=== PATIENT | female | born 1995 | race Caucasian/White ===

== ENCOUNTER → 2017-03-11 15:23 | Observation (INO) ==
--- NOTE | 2017-03-11 14:47 | OB/GYN History & Physical ---
Addendum entered and electronically signed by Nicolasa Young DO 15:12: Urine returned and WNL. Follow up with OBGYN in next 2-5 days. Original Note: Date of Encounter: 03/11/17 Time of Encounter: 14:45 Assessment and Plan (1) 22 weeks gestation of Current visit: Yes Status: Acute Bedside Doppler showed heart tones 160 bpm. Bedside ultrasound completed and showed good movement and good heart tones. We will perform a urine analysis to determine if there is a urinary tract infection. Disposition pending these results. This likely will be discharged with close follow-up with her [employer]. (2) with suprapubic cramping, antepartum Current visit: Yes Status: Acute Patient with suprapubic cramping starting this morning and afternoon. Patient denies any vaginal bleeding or fluid. We will perform a UA. Disposition pending results. History of Present Illness HPI: Ms. Reaves is a 21 year old female presenting to labor and delivery with chief complaint of suprapubic cramping and concern for not feeling baby move. Patient states she has been feeling the baby move since 15 weeks. Patient also with outside [employer] therefore we do not have any previous lab work. Patient states she is 22 weeks and 5 days. At last ultrasound were unable to visualize 2 chambers of the baby's heart that patient has had no other complications with this . She denies any vaginal bleeding or fluid leak. She denies any urinary symptoms. Patient takes vitamins daily. She states when she woke up this afternoon to get ready for work she did not feel baby moving. She also had suprapubic cramping. She was concerned because this is the cramping similar to when she would get her period. Patient has had a UTI in this . Past Med Surg Social Fam HX - Past Medical History Medical history: no medical history Psychiatric history: no psych history - Past Surgical History Surgical History: no surgical history - Social History Smoking Status: Never smoker Smokeless Tobacco Status: No Alcohol use: none Drug use: none - Family History Father Hx Family Medical Disorders: Yes (DVT) Obstetrical History - Pregnancies : 1 Para: 0 Term: 0 : 0 Ab's: 0 Livin Medications and Allergies Tablet 1 tab PO DAILY 03/11/17 [History] 3 Allergy/AdvReac Type Severity Reaction Status Date / Time Nickel Allergy Rash Verified 09/22/16 18:17 Review of System OB All systems PM: reviewed and no additional remarkable complaints except as stated Exam - Constitutional Constitutional: well developed, well nourished, no acute distress, average body habitus - HEENT HEENT: Normocephaly, Mucus Membranes Moist - Neck Neck exam: normal inspection - Lungs Respiratory exam: CTAB - Cardiovascular Cardiovascular exam: RRR - Abdomen Abdomen: Present: bowel sounds normal, gravid (Uterus 1 fingerbreath below the umbilicus), non tender - Extremities Extremities exam: normal inspection - Comments Comments: Bedside Doppler showed heart tones at 160 bpm. Bedside ultrasound completed showed good movement and good heart tones as well. Results All other labs normal. - VTE Reasons for not Prescribing Prophylaxis: Treatment not Indicated - Low risk for VTE - Attending Attestation I examined this patient and my medical decision-making was reviewed with the Resident Physician. I agree with the documented findings, disposition and treatment plan as described. Adam Parsons CNM
[2017-03-11 14:56] LABS: Bilirubin,Urine Negative (Negative); Blood,Urine Negative (Negative); Clarity,Urine Cloudy (Clear); Color,Urine Yellow (Yellow); Glucose,Urine (UA) Normal (Normal); Ketones,Urine Negative (Negative); Leukocyte Esterase,Urine Negative (Negative); Nitrite,Urine Negative (Negative); Protein,Urine Negative (Neg-Trace); Specific Gravity,Urine 1.016 (1.010-1.025); Urobilinogen,Urine Normal (Normal)
[2017-03-11 14:57] LABS: Bacteria,Urine Many per hpf (None-Few); Hyaline Casts,Urine None Seen per lpf (None-Few); RBC,Urine 0-3 per hpf (0-3); Squamous Epithelial Cell,Urine Many per lpf (None-Few)
[2017-03-11 15:01] LABS: Amphetamine Screen,Urine Negative ng/mL (Cutoff=1000); Barbiturate Screen,Urine Negative ng/mL (Cutoff=200); Benzodiazepines Screen,Urine Negative ng/mL (Cutoff=200); Cannabinoid Screen,Urine Negative ng/mL (Cutoff = 50); Cocaine Screen,Urine Negative ng/mL (Cutoff= 300); Opiate Screen,Urine Negative ng/mL (Cutoff=300); Phencyclidine Screen,Urine Negative ng/mL (Cutoff=25)
== END | disposition home or self-care (01) ==
LOC: 1NENULAB
PROVIDERS: ADMIT Obstetrics & Gynecology; ATTEND Obstetrics & Gynecology

== ENCOUNTER → 2017-05-14 17:43 | Observation (INO) ==
[2017-05-14 16:46] LABS: Basophils % 0.1 %; Eosinophils % 0.1 %; Hematocrit 34.8 % (35.3-44.9); Hemoglobin 11.6 g/dL (11.5-15.4); Lymphocytes # 1.1 K/mcL (0.6-4.6); Lymphocytes % 7.7 %; Mean Corpuscular HGB Conc 33.3 g/dL (31.6-35.5); Mean Corpuscular Volume 89.9 fL (83.0-100.0); Mean Platelet Volume 11.5 fL (9.4-12.4); Monocytes # 1.1 K/mcL (0.0-1.3); Monocytes % 7.4 %; Neutrophils # 11.9 K/mcL (1.6-8.9); Platelet Count 175 K/mcL (140-400); Red Blood Count 3.87 M/mcL (3.82-4.97); Segmented Neutrophils % 83.7 %
[2017-05-14 16:48] LABS: Bilirubin,Urine Negative (Negative); Blood,Urine Negative (Negative); Clarity,Urine Cloudy (Clear); Color,Urine Yellow (Yellow); Glucose,Urine (UA) Normal (Normal); Ketones,Urine Negative (Negative); Leukocyte Esterase,Urine Moderate (Negative); Nitrite,Urine Positive (Negative); Protein,Urine Trace mg/dL (Neg-Trace); Specific Gravity,Urine 1.015 (1.010-1.025); Urobilinogen,Urine Normal (Normal)
[2017-05-14 16:50] LABS: Bacteria,Urine Many per hpf (None-Few); Hyaline Casts,Urine None Seen per lpf (None-Few); Squamous Epithelial Cell,Urine Many per lpf (None-Few); WBC,Urine TNTC per hpf (0-3)
[2017-05-14 17:07] LABS: Amphetamine Screen,Urine Negative ng/mL (Cutoff=1000); Barbiturate Screen,Urine Negative ng/mL (Cutoff=200); Benzodiazepines Screen,Urine Negative ng/mL (Cutoff=200); Cannabinoid Screen,Urine Negative ng/mL (Cutoff = 50); Cocaine Screen,Urine Negative ng/mL (Cutoff= 300); Opiate Screen,Urine Negative ng/mL (Cutoff=300); Phencyclidine Screen,Urine Negative ng/mL (Cutoff=25)
--- NOTE | 2017-05-14 17:13 | OB/GYN Progress Note ---
Date of Encounter: 05/14/17 Time of Encounter: 17:11 - Assessment and Plan (1) UTI (urinary tract infection) during Current Visit: Yes Status: Acute Pt has UTI. Slightly elevated WBC with mild CVA tenderness. Will treat outpt with PO macrobid BID x7 days Advised to treat pain with tylenol Advised of concerning sx: vaginal bleeding, fuid leaking, poor movement Has f/u with OB Dr. Pereira next week. Qualifiers: Trimester: third trimester Qualified Code(s): O23.43 - Unspecified infection of urinary tract in , third trimester Subjective - Subjective Principal diagnosis: back pain Interval history: 21 y/o F at 33 6/7 weeks gestation (Dr. Pereira pt) presents complaining of low back pain for over a week. She denies dysuria or burning with urination, she has has minimal hematuria. She has not had fevers, chills. She denies LOF, vaginal bleeding and decreased movement. She reports she came in to be checked because the pain was getting worse. Antepartum ROS: movement normal, no loss of fluid, no vaginal bleeding, no contractions Objective - Vital Signs Vital Signs: Intake and Output 05/14/17 05/14/17 05/14/17 07:59 15:59 23:59 Other: Weight 88.8 kg Patient Weight 05/14/17 23:59 Weight 88.8 kg - Exam FHR: auscultation normal, category 1 FHR comments: baseline 155 Auscultation: bilateral: normal Abdomen: Present: normal appearance, soft, gravid. Absent: tenderness Uterus: Present: normal, firm, other (right CVA tenderness) - Labs Labs: Abnormal lab results WBC 14.2 K/mcL (4.3-11.1) H 05/14/17 16:20 Hct 34.8 % (35.3-44.9) L 05/14/17 16:20 Neutrophils # 11.9 K/mcL (1.6-8.9) H 05/14/17 16:20 Urine Clarity Cloudy (Clear) A 05/14/17 16:20 Urine Nitrite Positive (Negative) A 05/14/17 16:20 Ur Leukocyte Esterase Moderate (Negative) H 05/14/17 16:20 Urine Microscopic RBC 5-15 per hpf (0-3) H 05/14/17 16:20 Urine Microscopic WBC TNTC per hpf (0-3) H 05/14/17 16:20 Ur Squamous Epith Cells Many per lpf (None-Few) H 05/14/17 16:20 Urine Bacteria Many per hpf (None-Few) H 05/14/17 16:20
[~2017-05-14 17:43] MED LIST: Ringers Solution, Lactated 1,000 ML IVC ONE; Ringers Solution, Lactated 1,000 ML ONE
== END | disposition home or self-care (01) ==
LOC: 1NENULAB
PROVIDERS: ADMIT Family Medicine; ATTEND Student in an Organized Health Care Education/Training Program

== ENCOUNTER 2018-11-04 03:57 | Inpatient (IN) ==
[2018-11-04] MEDS ORDERED: Naloxone 0.4 MG/ML INJ IVP PRN (03:59)
[2018-11-04] MEDS ORDERED: *HR* Nalbuphine 10 MG/ML AMPUL IVP PRN (03:59)
[2018-11-04] MEDS ORDERED: Metoclopramide 10 MG/2 ML VIAL IVP PRN (03:59)
[2018-11-04] MEDS ORDERED: Lidocaine 1% 20 ML MDV INFILT PRN (03:59)
[2018-11-04] MEDS ORDERED: Ondansetron 4 MG/2 ML VIAL IVP PRN (03:59)
[2018-11-04] MEDS ORDERED: Famotidine 20 MG/2 ML VIAL IVP PRN (03:59)
[2018-11-04 04:43] LABS: Amphetamine Screen,Urine Negative ng/mL (Cutoff=1000); Barbiturate Screen,Urine Negative ng/mL (Cutoff=200); Benzodiazepines Screen,Urine Negative ng/mL (Cutoff=200); Cannabinoid Screen,Urine Negative ng/mL (Cutoff = 50); Cocaine Screen,Urine Negative ng/mL (Cutoff= 300); Opiate Screen,Urine Negative ng/mL (Cutoff=300); Phencyclidine Screen,Urine Negative ng/mL (Cutoff=25)
[2018-11-04 04:51] LABS: Basophils % 0.3 %; Eosinophils # 0.1 K/mcL (0.0-0.6); Eosinophils % 0.6 %; Hematocrit 33.8 % (35.3-44.9); Hemoglobin 10.3 g/dL (11.5-15.4); Immature Granulocytes % 0.9 % (0-4); Lymphocytes % 21.6 %; Mean Corpuscular HGB Conc 30.5 g/dL (31.6-35.5); Mean Corpuscular Hemoglobin 25.6 pg (28.0-33.3); Mean Corpuscular Volume 83.9 fL (83.0-100.0); Mean Platelet Volume 12.1 fL (9.4-12.4); Monocytes % 7.4 %; Neutrophils # 9.7 K/mcL (1.6-8.9); Platelet Count 293 K/mcL (140-400); Red Blood Count 4.03 M/mcL (3.82-4.97); Red Cell Distribution Width 13.8 % (11.5-14.5); Segmented Neutrophils % 69.2 %
[2018-11-04] MEDS ORDERED: Bupivacaine-MPF 0.25% 10 ML VIAL EP ONE (05:04)
[2018-11-04] MEDS ORDERED: *HR* FentaNYL (PF) 100 MCG/2 ML VIAL EP ONE (05:04)
[2018-11-04] MEDS ORDERED: EPHEDrine 50 MG/ML VIAL IVP PRN (05:04)
--- NOTE | 2018-11-04 05:04 | Anesthesia Evaluation PreOp ---
Date of Encounter: 11/04/18 Time of Encounter: 05:02 - Past History Planned Operation: YOKO Cardiac History: Denies any Significant Hx Pulmonary History: Denies Any Significant HX [employer] ASSOCIATE History: Denies Any Significant HX Other Medical History: Denies Any Significant HX Anesthesia History: No Prior Anesthetic Complications (YOKO x 1--inadequate labor analgesia; denies personal and family h/o GA complications) : Yes Alcohol Use: none Drug use: none Medications and Allergies Tablet 1 tab PO DAILY 03/11/17 [History] Famotidine [Acid Controller] 20 mg PO BID #60 tablet 09/29/17 [Rx] Allergy/AdvReac Type Severity Reaction Status Date / Time Nickel Allergy Rash Verified 07/29/18 21:39 - Meds/Allergy Pre-op Review Medications Reviewed: Yes Allergies Reviewed: Yes Beta Blockers on Current Med List: No Anesthesia Results - Labs 11/04/18 04:00 Anesthesia Exam 136/86, HR 107 O2 Sat Height 1.73 m Weight 106.141 kg NPO (# of Hours): solids > 8hrs Pain Scale: 0 Pain Scale Used: Numeric (1 - 10) - HEENT Pupil (Motor): Pupils equal Mallampati: I Teeth: Normal Oral Opening: Greater than 3 - [employer] ASSOCIATE LOC: Oriented [employer]ATE Motor: Normal RUE, Normal LUE, Normal RLE, Normal LLE, Normal Face [employer]ATE Sensory: Normal: RUE, LUE, RLE, LLE, Face - Cardiac Rhythm: Regular Murmur: None - Pulmonary Breath Sounds: bilateral Clear Respiratory Effort: Symmetrical Anesthesia Assess/Plan ASA Score: 2 Level of consciousness: Cooperative, Oriented, Tranquil Anesthetic Plan: Epidural Autologous Blood: No Monitoring Plan: Standard Monitors Recovery Plan: Other
--- NOTE | 2018-11-04 06:20 | Event Note ---
Date of Encounter: 11/04/18 Time of Encounter: 06:18 Patient is agreeable to placement of double cervical ripening balloon. Double cervical balloon placed without difficulty. 60 mL sterile water instilled into uterine balloon, 40 mL instilled into vaginal balloon. Patient tolerated with minimal discomfort.
--- NOTE | 2018-11-04 07:28 | OB/GYN History & Physical ---
Date of Encounter: 11/04/18 Time of Encounter: 07:26 Assessment and Plan (1) 39 weeks gestation of Current visit: Yes Status: Acute History of Present Illness Chief complaint: induction HPI: Ms. Chaves is a 22 year old female 011 who presented to labor and delivery at 39 weeks and 3 days for induction of labor. She is doing well without complaints. On exam her cervix is 3 cm 50% effaced and a -2 station. Don induction was started. She is doing well. She is having no complaints. She is been tolerating her vitamins. This patient has no known drug all ergies. Medications include vitamins and iron. She has no chronic medical conditions. Surgical history is negative. Socially she denies tobacco, alcohol, illicit drug use. Family history is significant for paternal grandmother with a bleeding disorder is also family history diabetes and heart disease. Obstetric history significant for one term vaginal delivery uncomplicated. She also had one miscarriage. Past Med Surg Social Fam HX - Past Medical History Medical history: no medical history Psychiatric history: no psych history - Past Surgical History Surgical History: no surgical history Additional surgical history: lymphnode removal. nose surgery - Social History Smoking Status: Never smoker Smokeless Tobacco Status: No Alcohol use: none Drug use: none - Family History Mother Adopted: No Living Status: Still Living Hx Family Cardiac Disorders: No Hx Family Respiratory Disorders: No Hx Family Cancer: No Hx Family GI Disorders: No Hx Family Endocrine Disorder: No Hx Family Neuromuscular Disorders: No Hx Family Neurologic Disorders: No Hx Family HEENT Disorders: No Hx Family Autoimmune Disorders: No Obstetrical History - Pregnancies : 3 Para: 1 Term: 1 Ab's: 1 Livin Medications and Allergies Tablet 1 tab PO DAILY 03/11/17 [History] Famotidine [Acid Controller] 20 mg PO BID #60 tablet 09/29/17 [Rx] Allergy/AdvReac Type Severity Reaction Status Date / Time Nickel Allergy Rash Verified 07/29/18 21:39 Review of System OB All systems PM: reviewed and no additional remarkable complaints except as stated Exam - Constitutional Constitutional: well developed, well nourished, no acute distress, average body habitus - HEENT HEENT: EOMI, PERRL, Normocephaly - Neck Neck exam: full ROM - Lungs Respiratory exam: CTAB - Cardiovascular Cardiovascular exam: RRR - Abdomen Abdomen: Present: bowel sounds normal, gravid, non tender - Extremities Extremities exam: full ROM, normal inspection - Vagina Vagina: Present: normal moisture - Cervix Dilation: 3 Effacement: 50 Station: -2 - Uterus Uterus exam: Present: normal size Results Result Diagrams: 11/04/18 04:00 Abnormal lab results WBC 14.0 K/mcL (4.3-11.1) H 11/04/18 04:00 Hgb 10.3 g/dL (11.5-15.4) L 11/04/18 04:00 Hct 33.8 % (35.3-44.9) L 11/04/18 04:00 MCH 25.6 pg (28.0-33.3) L 11/04/18 04:00 MCHC 30.5 g/dL (31.6-35.5) L 11/04/18 04:00 Neutrophils # 9.7 K/mcL (1.6-8.9) H 11/04/18 04:00 All other labs normal. - VTE Reasons for not Prescribing Prophylaxis: Treatment not Indicated - Low risk for VTE
[2018-11-04] MEDS: Ringers Solution, Lactated 1,000 ML IVC SCH ×2 (12:41→14:01)
[2018-11-04] MEDS ORDERED: *HR* FentaNYL (PF) 100 MCG/2 ML VIAL ONE (13:23)
[2018-11-04] MEDS: Epidural Premix (fent/bupiv) 110 ML EP SCH ×2 (13:33→20:30)
[2018-11-04] MEDS ORDERED: *HR* Phenylephrine 10 MG/ML VIAL ONE (14:05)
--- NOTE | 2018-11-04 14:23 | Anesthesia Procedures ---
Date of Encounter: 11/04/18 Time of Encounter: 13:28 Procedures: Anesthesia - Epidural/Spinal Patient ID/Chart reviewed: Yes Patient examined: Yes OB Eval: Gestational age: 39.3 OB Eval: : 3 OB Eval: Hx Para: 1 OB Eval: Dilated at (cm): 6 OB Eval: Contractions: Non-stressed pattern Consent Obtained: Yes Supplemental Oxygen: None/Room Air Site Prep: Aseptic Technique, Sterile prep and drape, Povidone-Iodine 1% Patient position: upright Local Anesthetic: Lidocaine 1% Amount of Local Anesthetic used: 3 Touhy Needle Gauge: 18 Touhy Needle Depth (cm): 6 Catheter Depth at Skin (cm): 14 Test Dose (1.5% Lido + Epi): Volume given (mls): 3 Test Dose Result: Negative Loading Dose: Fentanyl (mcg): 100 Loading Dose: Other: Ropivicaine 0.2% 5ml, 3ml Normal saline Loading Dose Administered: Thru Catheter Infusion Med: 0.125% Bupivacaine w/ 2 mcg/ml Fentanyl Infusion Rate (mls/hr): [address]: Tegaderm, Tape Interspace Used: L4-L5 Loss of Resistance (ALESSANDRO): Yes Blood: No CSF: No Paresthesia: No Procedure: YOKO placed 1st pass in upright position. ALESSANDRO achieved with normal saline. Catheter threaded with ease to 14cm at the skin. Test dose negative. Pt stated comfort following epidural bolus administration. VSS throughout. Vitals + FHT's: 1328 BP 119/79 P 120 R 18 1400 BP 106/57 P 77 R 16 Administered 100mcg phenylephirine d/t heart rate drop and dip in patients blood pressure. Responded quickly to this medication and heart rate normalized.
--- NOTE | 2018-11-04 19:31 | OB Labor Progress Note ---
Date of Encounter: 11/04/18 Time of Encounter: 19:29 Labor Progress Note - Subjective Subjective: Pt comfortable with epidural - Cervix Cervix: 7-8/70/-1 - Heart Tones Heart Tones: Baseline 150 Moderate variability Accelerations present 15x15 No decelerations FHR Category I - [place]: Contractions every 5-6 minutes - Interventions Interventions: SVE AROM for moderate amount of clear fluid - Plan Physician notified: Yes Physician notified details: Dr. Dumont notified Plan: Continue induction plan Anticipate
[2018-11-05] MEDS ORDERED: Oxytocin 20 units/ LR 1000 mL 20 UNIT/1,000 ML BAG IVC ONE (02:04)
[2018-11-05] MEDS ORDERED: Methylergonovine 0.2 MG/ML AMPUL IM ONE ×2 (02:25→12:59)
--- NOTE | 2018-11-05 02:25 | OB/GYN Procedure Note ---
Delivery - Delivery Date: 11/05/18 Provider: Tasia Dumont Intrapartum events: none Delivery induction: AROM, oxytocin, gil Delivery monitor: external FHT, external uterine, internal uterine Anesthesia: epidural Quantitated Blood Loss: 400 - (s) Infant A Delivery Date: 11/05/18 Infant Delivery Time: 02:02 Presentation: vertex Route of delivery: Gender: Female Viability: Viable Pounds: 8 Ounces: 7 Weight Gram: 3825 kg at 1 minute: 8 at 5 mins: 9 Shoulder Dystocia: not encountered Specimens collected: cord blood Placenta: spontaneous - Repair Episiotomy: none Laceration Description: Superficial (Clitoral serna superficial laceration that did not require repair, hemostatic) - Complications Delivery complications: none - Disposition Mom disposition: stable in LDR disposition: stable in LDR - Comments Comments: Called to see patient at C/C/+2 station. With more than adequate maternal effort. Baby girl was delivered over intact perineum. was vigorous and crying. Cord delay was allowed prior to cord being clamped and cut. Cord blood and gases were collected. Placenta was then delivered spontaneously without difficulty and intact. Upon inspection of the perineum, no lacerations were appreciated. Uterus appeared boggy, IV pitocin was started. Bimanuel compression was performed however patient still with non-firm fundus and active bleeding from uterus. One does of IM methergine was administered at which point the fundus became very firm. Small clitoral serna (superficial) skin laceration was appreciated but patient was hemostatic and did not require repair. All counts were correct x3. EBL: 400mL Vertex, direct OA Baby girl 8#7ox Apgars: 8/9 Placenta intact Delivery time: 0202 on 11/05 Placenta time: 0211 I was present for the entirety of the procedure. MD JOSELINE
[2018-11-05] MEDS ORDERED: Lanolin 7 G OINT...G. TP PRN (05:04)
[2018-11-05] MEDS ORDERED: Acetaminophen 325 MG TABLET PO PRN (05:04)
[2018-11-05] MEDS ORDERED: Rho Immune Globulin 1,500 UNIT SYRINGE IM PRN (05:04)
[2018-11-05] MEDS ORDERED: Measles/Mumps/Rubella Vacc 0.5 ML VIAL SQ PRN (05:04)
[2018-11-05] MEDS ORDERED: Oxytocin 20 units/ LR 1000 mL 20 UNIT/1,000 ML BAG IVC SCH (05:04)
[2018-11-05] MEDS ORDERED: Benzocaine/Menthol 56 GM AEROSOL SPRAY TP PRN (05:04)
[2018-11-05] MEDS: Prenatal Vit/FA 1 EACH TABLET PO SCH (08:20)
[2018-11-06 05:56] LABS: Basophils # 0.1 K/mcL (0.0-0.2); Basophils % 0.5 %; Eosinophils # 0.1 K/mcL (0.0-0.6); Eosinophils % 1.3 %; Hematocrit 27.8 % (35.3-44.9); Immature Granulocytes % 0.8 % (0-4); Lymphocytes # 3.1 K/mcL (0.6-4.6); Lymphocytes % 28.8 %; Mean Corpuscular HGB Conc 30.2 g/dL (31.6-35.5); Mean Corpuscular Hemoglobin 25.4 pg (28.0-33.3); Monocytes # 0.9 K/mcL (0.0-1.3); Monocytes % 8.7 %; Neutrophils # 6.4 K/mcL (1.6-8.9); Platelet Count 267 K/mcL (140-400); Red Blood Count 3.31 M/mcL (3.82-4.97); Red Cell Distribution Width 14.2 % (11.5-14.5); Segmented Neutrophils % 59.9 %; White Blood Count 10.7 K/mcL (4.3-11.1)
[2018-11-06 06:05] LABS: Hemoglobin 8.4 g/dL (11.5-15.4)
[2018-11-06 07:43] VITALS: BP 110/72
[2018-11-06] MEDS: Prenatal Vit/FA 1 EACH TABLET PO SCH (08:04)
--- NOTE | 2018-11-06 08:38 | Discharge Summary ---
Date of Encounter: 11/06/18 Time of Encounter: 08:36 - Discharge Diagnosis (1) Vaginal delivery Priority: Primary Status: Acute Comments: Continue routine care discharge home today follow up with Dr. Pereira in 4-6 weeks - Discharge Medications Prescriptions: New Benzocaine/Menthol [place] [Dermoplast [place]] 1 appl TP QID PRN aerosol PRN Reason: See Comments Continued Tablet 1 tab PO DAILY Discontinued Famotidine [Acid Controller] 20 mg PO BID #60 tablet Home Medications: Tablet 1 tab PO DAILY 03/11/17 [History] Benzocaine/Menthol [place] [Dermoplast [place]] 1 appl TP QID PRN aerosol 11/06/18 [Rx] Allergies/Adverse Reactions: 3 Allergy/AdvReac Type Severity Reaction Status Date / Time Nickel Allergy Rash Verified 07/29/18 21:39 Data Procedures and tests throughout hospitalization: Laboratory Tests 11/04/18 11/04/18 11/06/18 04:00 04:11 05:27 WBC 14.0 H 10.7 RBC 4.03 3.31 L Hgb 10.3 L 8.4 L D Hct 33.8 L 27.8 L MCV 83.9 84.0 MCH 25.6 L 25.4 L MCHC 30.5 L 30.2 L RDW 13.8 14.2 Plt Count 293 267 MPV 12.1 12.0 Immature Gran % 0.9 0.8 Seg Neutrophils % 69.2 59.9 Lymphocytes % 21.6 28.8 Monocytes % 7.4 8.7 Eosinophils % 0.6 1.3 Basophils % 0.3 0.5 Neutrophils # 9.7 H 6.4 Lymphocytes # 3.0 3.1 Monocytes # 1.0 0.9 Eosinophils # 0.1 0.1 Basophils # 0.0 0.1 Urine Opiates Screen Negative Ur Buprenorphine Scrn Negative Ur Barbiturates Screen Negative Ur Phencyclidine Scrn Negative Ur Amphetamines Screen Negative U Benzodiazepines Scrn Negative Urine Cocaine Screen Negative U Marijuana (THC) Screen Negative Ur Drug Screen Interp See Below Labs on day of discharge: Labs from last 24 hours 11/06/18 05:27 WBC 10.7 RBC 3.31 L Hgb 8.4 L D Hct 27.8 L MCV 84.0 MCH 25.4 L MCHC 30.2 L RDW 14.2 Plt Count 267 MPV 12.0 Immature Gran % 0.8 Seg Neutrophils % 59.9 Lymphocytes % 28.8 Monocytes % 8.7 Eosinophils % 1.3 Basophils % 0.5 Neutrophils # 6.4 Lymphocytes # 3.1 Monocytes # 0.9 Eosinophils # 0.1 Basophils # 0.1 Date of admission: 11/04/18 03:57 Primary care physician: PCP NONE Consults: 11/05/18 05:04 Consult to Apparatus Engineering Technologist [CONS] Routine Comment: Vaginal delivery, consult needed Discharging clinician: Rama Keith Anticipated date of discharge: 11/06/18 - Patient Status Disposition: Home, Self-Care Condition: Good Functional capacity at discharge: independent ambulation - Discharge Instructions Follow Up With: NONE,PCP [Primary Care Provider] - Justin Pereira MD [Partnered Physician] - - Diet and Activity Activity: increase activity as tolerated Diet: regular diet Hospital Course Reason for admission: induction of labor Delivery: Episiotomy: none Laceration: none Other procedures: none complications: none Discharge diagnosis: IUP at term delivered baby: female (bottle feeding) Time Attestation: Total time spent providing and/or coordinating discharge services: Time Spent: Less than 30 minutes Exam - Constitutional Vitals: Temp Pulse Resp BP Pulse Ox 97.8 F 78 15 110/72 98 11/06/18 07:42 11/06/18 07:42 11/06/18 07:42 11/06/18 07:42 11/06/18 07:42 General appearance IM: A&O X 3, pleasant, answers questions appropriately - Respiratory Respiratory exam: Present: CTAB - Cardiovascular Cardiovascular exam IM: Present: RRR, +S1, +S2 - GI/Abdominal GI/Abdominal exam IM: normal bowel sounds - Uterine Tone: Firm Uterus Position: At Umbilicus, Midline - Extremities Exam Extremities exam IM: Present: full ROM, normal capillary refill, normal inspection - Neurological Exam Neurological exam: alert, oriented X3, reflexes normal
[2018-11-06] MEDS ORDERED: Methylergonovine 0.2 MG/ML AMPUL IM ONE (12:59)
== END 2018-11-06 13:00 | disposition home or self-care (01) | DRG 806 ==
LOC: 1NENULAB 03:57 → 1NENUOBS 11-05 04:55
PROVIDERS: ADMIT Obstetrics & Gynecology; ATTEND Obstetrics & Gynecology

== ENCOUNTER 2020-03-16 04:15 | Inpatient (IN) ==
[2020-03-16] MEDS ORDERED: Famotidine 20 MG/2 ML VIAL IVP PRN (08:09)
[2020-03-16] MEDS ORDERED: *HR* Nalbuphine 10 MG/ML AMPUL IV PRN (08:09)
[2020-03-16] MEDS ORDERED: Ondansetron 4 MG/2 ML VIAL IVP PRN (08:09)
[2020-03-16] MEDS ORDERED: Azithromycin 500 MG in 0.9 % Sodium Chloride 250 ML IVPB ONE (08:09)
[2020-03-16] MEDS ORDERED: Metoclopramide 10 MG/2 ML VIAL IVP PRN (08:09)
[2020-03-16] MEDS ORDERED: Naloxone 0.4 MG/ML INJ IVP PRN (08:09)
[2020-03-16] MEDS ORDERED: Oxytocin 20 units/ LR 1000 mL 20 UNIT/1,000 ML BAG IVC SCH (08:15)
[2020-03-16] MEDS: Ringers Solution, Lactated 1,000 ML IVC SCH ×3 (08:41→17:11)
[2020-03-16] MEDS ORDERED: EPHEDrine 50 MG/ML VIAL IVP PRN (10:43)
[2020-03-16] MEDS ORDERED: Epidural Premix (fent/bupiv) 110 ML EP SCH (10:45)
[2020-03-16 11:40] LABS: Amphetamine Screen,Urine Negative ng/mL (Cutoff=1000); Barbiturate Screen,Urine Negative ng/mL (Cutoff=200); Benzodiazepines Screen,Urine Negative ng/mL (Cutoff=200); Cannabinoid Screen,Urine Negative ng/mL (Cutoff = 50); Cocaine Screen,Urine Negative ng/mL (Cutoff= 300); Creatinine,Urine 118 mg/dL; Opiate Screen,Urine Negative ng/mL (Cutoff=300); Phencyclidine Screen,Urine Negative ng/mL (Cutoff=25); Protein/Creatinine Ratio,Urine 0.18 mg/mg (0.00-0.20)
[2020-03-16] MEDS ORDERED: Ropivacaine/PF 0.2% 20 ML VIAL ONE (12:47)
[2020-03-16] MEDS ORDERED: *HR* FentaNYL (PF) 100 MCG/2 ML VIAL ONE (12:47)
[2020-03-16 12:58] LABS: Basophils % 0.4 %; Eosinophils # 0.1 K/mcL (0.0-0.6); Eosinophils % 0.5 %; Hematocrit 30.3 % (35.3-44.9); Hemoglobin 8.9 g/dL (11.5-15.4); Immature Granulocytes % 0.8 % (0-4); Lymphocytes # 1.9 K/mcL (0.6-4.6); Lymphocytes % 18.7 %; Mean Corpuscular HGB Conc 29.4 g/dL (31.6-35.5); Mean Corpuscular Hemoglobin 22.6 pg (28.0-33.3); Mean Corpuscular Volume 76.9 fL (83.0-100.0); Mean Platelet Volume 11.9 fL (9.4-12.4); Monocytes # 0.7 K/mcL (0.0-1.3); Monocytes % 7.1 %; Neutrophils # 7.5 K/mcL (1.6-8.9); Platelet Count 253 K/mcL (140-400); Red Blood Count 3.94 M/mcL (3.82-4.97); Red Cell Distribution Width 15.7 % (11.5-14.5); Segmented Neutrophils % 72.5 %; White Blood Count 10.3 K/mcL (4.3-11.1)
[2020-03-16 13:06] LABS: Alanine Aminotransferase 9 Units/L (7-52); Aspartate Amino Transferase 13 Units/L (13-39); BUN/Creatinine Ratio 13 (6-26); Blood Urea Nitrogen 6 mg/dL (6-20); Lactate Dehydrogenase 145 Units/L (140-271); Uric Acid 3.2 mg/dL (2.3-7.6); eGFR For African Americans > 60 (> 60); eGFR For Non-African Americans > 60 (> 60)
[2020-03-16] MEDS ORDERED: D5% in Lactated Ringers 1,000 ML IVC SCH (19:00)
[2020-03-16] MEDS ORDERED: 0.9 % Sodium Chloride 1,000 ML ONE (20:53)
[2020-03-17] MEDS ORDERED: Measles/Mumps/Rubella Vacc 0.5 ML VIAL SQ PRN (01:33)
[2020-03-17] MEDS ORDERED: Benzocaine/Menthol 56 GM AEROSOL SPRAY TP PRN (01:33)
[2020-03-17] MEDS ORDERED: Oxytocin 20 units/ LR 1000 mL 20 UNIT/1,000 ML BAG IVC SCH (01:33)
[2020-03-17] MEDS ORDERED: Acetaminophen 325 MG TABLET PO PRN (01:33)
[2020-03-17] MEDS ORDERED: Ibuprofen 600 MG TABLET PO PRN (01:33)
[2020-03-17 05:13] LABS: Basophils # 0.1 K/mcL (0.0-0.2); Basophils % 0.4 %; Eosinophils % 0.3 %; Hematocrit 30.5 % (35.3-44.9); Immature Granulocytes % 0.6 % (0-4); Lymphocytes # 1.6 K/mcL (0.6-4.6); Lymphocytes % 11.7 %; Mean Corpuscular HGB Conc 29.5 g/dL (31.6-35.5); Mean Corpuscular Hemoglobin 22.7 pg (28.0-33.3); Mean Platelet Volume 11.4 fL (9.4-12.4); Monocytes # 1.4 K/mcL (0.0-1.3); Monocytes % 10.3 %; Neutrophils # 10.5 K/mcL (1.6-8.9); Platelet Count 238 K/mcL (140-400); Red Blood Count 3.96 M/mcL (3.82-4.97); Red Cell Distribution Width 15.9 % (11.5-14.5); Segmented Neutrophils % 76.7 %; White Blood Count 13.6 K/mcL (4.3-11.1)
[2020-03-17] MEDS ORDERED: NON-FORMULARY MEDICATION 1 EACH EACH (Prenatal Tablet 1 TAB) PO SCH (09:00)
[2020-03-17] MEDS ORDERED: Prenatal Vit/FA 1 EACH TABLET PO SCH (09:00)
[2020-03-17 15:58] VITALS: BP 119/82
== END 2020-03-17 22:43 | disposition home or self-care (01) | DRG 807 ==
LOC: 1NENULAB 04:15 → 1NENUOBS 03-17 00:36
PROVIDERS: ADMIT Obstetrics & Gynecology; ATTEND Obstetrics & Gynecology